=== PATIENT | female | born 1985 | race African-American/Black ===

== ENCOUNTER 2020-08-20 13:31 | Emergency (ER) | payer BC, MEDICAID ==
[~2020-08-20] VITALS: Ht 172.7 cm; Wt 134.0 kg
[2020-08-20] MEDS ORDERED: ACET-2708 MT (14:36)
[2020-08-20] MEDS ORDERED: CEPH500T MT (14:36)
[2020-08-20] MEDS ORDERED: ACETAMINOPHEN 325MG TABLET PO ONE (14:45)
[2020-08-20] MEDS ORDERED: CEPHALEXIN 250MG CAPSULE PO ONE (14:45)
[2020-08-20 14:50] VITALS: BP 131/89
== END 2020-08-20 14:50 | disposition home or self-care (01) ==
LOC: ER 13:31
DX: O99.891 Other specified diseases and conditions complicating pregnancy (principal); L03.116 Cellulitis of left lower limb; O26.891 Other specified pregnancy related conditions, first trimester; R03.0 Elevated blood-pressure reading, without diagnosis of hypertension; Z3A.14 14 weeks gestation of pregnancy
CPT/HCPCS: 99283